=== PATIENT | male | born 1955 | race Caucasian/White ===

== ENCOUNTER 2017-03-22 06:07 | Day surgery (SDC) | payer OTHER ==
[2017-03-22] MEDS ORDERED: LIDOCAINE 2% (SDV) 5 ML INJ (07:47)
[2017-03-22] MEDS ORDERED: PROPOFOL 60 ML (07:47)
== END 2017-03-22 13:36 | disposition home or self-care (01) ==
LOC: GIL 06:07
DX: Z12.11 Encounter for screening for malignant neoplasm of colon (principal); K64.4 Residual hemorrhoidal skin tags; I10 Essential (primary) hypertension; J44.9 Chronic obstructive pulmonary disease, unspecified; E78.5 Hyperlipidemia, unspecified
CPT/HCPCS: 45378